=== PATIENT | female | born 2000 | race Caucasian/White ===

== ENCOUNTER 2020-04-09 19:20 | Emergency (ER) | payer BC, SELFPAY ==
[2020-04-09 19:25] VITALS: RESP 18; O2SAT 95; BMI 31.5
[2020-04-09 19:38] VITALS: PULSE 130
--- NOTE | 2020-04-09 19:55 | XRR_ITS ---
PROCEDURE INFORMATION: Exam: XR Chest, 1 View Exam date and time: 04/09/2020 10:43 PM Age: 20 years old Clinical indication: Dyspnea; Additional info: Fever TECHNIQUE: Imaging protocol: XR of the chest Views: 1 view. COMPARISON: No relevant prior studies available. FINDINGS: Lungs: Unremarkable. No consolidation. Pleural space: Unremarkable. No pleural effusion. No pneumothorax. Heart/Mediastinum: Unremarkable. No cardiomegaly. Bones/joints: No acute abnormality. XR/XR chest 1V portable [id number] IMPRESSION: No acute findings.
[2020-04-09] MEDS: acetaminophen 500 mg Tablet 1000 MG PO (21:55)
--- NOTE | 2020-04-09 22:17 | ED_ITS ---
HPI - Fever General: Chief Complaint: Fever Stated Complaint: possible covid Time Seen by Provider: 04/09/20 22:08 Source: patient Mode of arrival: ambulatory Limitations: no limitations History of Present Illness: HPI Narrative: 20-year-old female comes in today with sore throat with tonsillar enlargement and exudate bilateral tonsils. Patient appears mildly unwell. Patient appears in no acute distress. Patient works in the home health. Patient denies any chronic medical problems. Review of Systems General: Reports: 10 or more systems reviewed and unremarkable except in HPI and below Const: Reports: fever(s) ENMT: Reports: throat pain [facility] ED Female Reproductive History: Date of last menstrual period: 03/11/20 Physical Exam Const: COMMON NORMALS: no acute distress and patient oriented x3 GENERAL APPEARANCE: cooperative HENMT: COMMON NORMALS: normocephalic, TM's normal bilaterally and Normal external nose present HEAD & SCALP: normal to inspection and normocephalic NOSE: Normal external nose present TYMPANIC MEMBRANE: TM's normal bilaterally MOUTH: Normal oral and palatal mucosa present THROAT: abnormal tonsil bilateral exudates and hypertrophy Eye: GENERAL EYE: appearance normal, both eyes and all related structures Neck/C-Spine: COMMON NORMALS: full ROM Lymph: LYMPHATIC: lymphadenopathy (anterior cervical) Chest: COMMONS NORMALS: normal inspection of the chest Resp: COMMON NORMALS: normal respiratory effort EFFORT & INSPECTION: Yes able to speak in complete sentences Cardio: COMMON NORMALS: regular rate and regular rhythm RATE: regular rate RHYTHM: regular rhythm GI: COMMON NORMALS: non-tender Back/Pelvis: COMMON NORMALS: thoracic and lumbar spine normal to inspection Extremity: COMMON NORMALS: normal to inspection Neuro: COMMON NORMALS: patient oriented x3 and moves all extremities Psych: COMMON NORMALS: mental status grossly normal and cooperative Skin: COMMON NORMALS: no rashes or lesions noted GENERAL SKIN EXAM: no rashes or lesions noted Course Vital Signs: Vital signs: Vital Signs Pulse Rate 98 04/09/20 23:16 Respiratory Rate 20 H 04/09/20 23:16 Blood Pressure 116/75 04/09/20 23:16 Pulse Oximetry 98 04/09/20 23:16 MDM - Fever MDM Narrative: Medical decision making narrative: Patient comes in today with complaints of sore throat starting yesterday. Patient also reports a fever. On exam bilateral tonsils are 2+ with exudate. Patient has anterior cervical lymphadenopathy. Airway is open. Vital signs are normal. Differential diagnosis includes but not limited to infectious mono, strep pharyngitis, acute bacterial tonsillitis. Strep test was negative, mono screen was outstanding, CBC noted a 25,000 white count. Reviewed exam with patient recommended treatment for bacterial tonsillitis with clindamycin antibiotic and dexamethasone for pain and swelling. Patient reports understanding agreed to plan. Lab Data: Labs: Lab Results 04/09/20 04/09/20 04/09/20 Range/Units 22:10 22:10 23:17 WBC 24.7 H (4.5-13.0) 10^3/ uL RBC 4.35 (4.1-5.3) 10^6/u L Hgb 13.1 (11.5-15.3) g/dL Hct 40.4 (37.0-47.0) % MCV 92.9 (81-99) fL MCH 30.1 (28.0-34.0) pg MCHC 32.4 (30.0-36.0) g/dL RDW 13.7 (12.1-15.1) % Plt Count 191 (130-400) 10^3/c mm MPV 11.0 H (7.4-10.4) fL Neut % (Auto) 84.4 % Lymph % (Auto) 6.4 % [place] % (Auto) 8.1 % Eos % (Auto) 0.1 % Baso % (Auto) 0.2 % Neut # (Auto) 20.89 H (1.8-8.0) 10^3/u L Lymph # (Auto) 1.6 (1.5-6.5) 10^3/u L [place] # (Auto) 2.0 H (0.2-0.9) 10^3/u L Eos # (Auto) 0.0 (0.0-0.8) 10^3/u L Baso # (Auto) 0.0 (0.0-0.1) 10^3/u L Nucleated RBC % (a uto) 0 % Nucleated RBCs # 0.0 /100WBC Influenza Type A A g Negative (Negative) Influenza Type B A g Negative (Negative) Group A Strep Rapi d Negative (Negative) Discharge Plan Discharge Patient Disposition: Home, Self-Care Clinical Impression: Acute bacterial tonsillitis Condition: Stable Prescriptions: New clindamycin HCl 150 mg capsule 300 mg PO QID 7 Days Qty: 56 RF: 0 Discharge Orders: Discharge Order (Routine); Ordered 04/09/20 Ordered By: Nathanael Johnson Discharge Diet: Usual diet Discharge Activity: Increase activity as tolerated Patient Instructions: Tonsillitis (ED) Activity Restrictions/Additional Instructions: Drink plenty of water with medication. Tylenol and ibuprofen as needed for pain. Follow-up with primary care as needed. Return to the ER for difficulty breathing or new concerns. Coding Level of Care Code ED [employer] for [employer] Fwd Exam Comprehensive
[2020-04-09 22:50] LABS: Rapid Strep A Test Negative (Negative)
[2020-04-09 22:53] LABS: Influenza A by IFA Negative (Negative); Influenza B by IFA Negative (Negative)
[2020-04-09 23:16] VITALS: BP 116/75; PULSE 98; RESP 20; O2SAT 98
--- NOTE | 2020-04-09 23:20 | PC.NURSE ---
report given to suha love assumed care.
[2020-04-09 23:37] LABS: Basophils % 0.2 %; Eosinophils % 0.1 %; Hematocrit 40.4 % (37.0-47.0); Hemoglobin 13.1 g/dL (11.5-15.3); Lymphocytes # 1.6 10^3/uL (1.5-6.5); Lymphocytes % 6.4 %; Mean Corpuscular HGB Conc 32.4 g/dL (30.0-36.0); Mean Corpuscular Hemoglobin 30.1 pg (28.0-34.0); Mean Corpuscular Volume 92.9 fL (81-99); Monocytes % 8.1 %; Neutrophils # 20.89 10^3/uL (1.8-8.0); Neutrophils % 84.4 %; Nucleated Red Blood Cells % 0 %; Platelet Count 191 10^3/cmm (130-400); Red Blood Count 4.35 10^6/uL (4.1-5.3); Red Cell Distribution Width 13.7 % (12.1-15.1); White Blood Count 24.7 10^3/uL (4.5-13.0)
[2020-04-10 00:04] LABS: HCG, Serum Qual Negative (Negative); Monoscreen Negative (Negative)
[2020-04-10] MEDS: dexamethasone 4 mg Tablet 10 MG PO (00:11)
[2020-04-10] MEDS: clindamycin 150 mg Capsule 300 MG PO (00:11)
[2020-04-10 00:14] VITALS: TEMP 37.2
== END 2020-04-10 00:17 | disposition home or self-care (01) ==
PROVIDERS: Emergency Medicine; Emergency Provider Nurse Practitioner Family
DX: J03.80 Acute tonsillitis due to other specified organisms (principal)
CPT/HCPCS: 12345; 71045; 84703; 85025; 86308; 87081; 87804; 87880; 99282; 99283; J8540

== ENCOUNTER → 2023-03-11 13:48 | Outpatient (BNVA) | payer BC, SELFPAY | PROVIDERS: Visit Provider Emergency Medicine | DX: S99.912A Unspecified injury of left ankle, initial encounter (principal); W10.9XXA Fall (on) (from) unspecified stairs and steps, initial encounter | CPT/HCPCS: 73610 ==